=== PATIENT | male | born 1995 | race Caucasian/White ===

== ENCOUNTER 2025-09-03 15:28 | Outpatient (AMB) | payer OTHER, SELFPAY ==
--- NOTE | 2025-09-03 15:28 | A.OFFPC_ITS ---
Vital Signs 09/03/25 15:46 Height 5 ft 10.47 in Weight 194 lb BMI 27.5 BP 141/84 H Blood Pressure Location Rt brachial Position Sitting Respiration 14 Pulse 100 Pulse Source Pulse Oximeter Temp 97.8 F Temp Source Temporal Artery Scan Pulse Oximetry (%) 98 Oxygen Delivery Method Room Air Intake Visit Reasons: office visit -new visit Pe Teacher Required: No Accompanied by: Self / Same As Patient Allergies No Known Allergies Allergy (Verified 09/03/25 16:01) Medication List - Last Reconciled 09/03/25 by Anh Samuel PA-C lisinopril 10 mg PO DAILY Tobacco use date assessed: 09/03/25 Dental Screening Dental Screen Date: 09/03/25 Did you have a dental visit in the last 12 months?: No Did you have a dental problem in the last 6 months where you did not have access to dental care?: No Was dental information given to patient?: Patient has dentist HPI office visit -new visit HPI Details The patient is a 29-year-old male presenting for a new patient visit to establish care. He reports having a physical and blood work at the beginning of the year with his previous provider at [facility]. The patient is experiencing anxiety, which he attributes to work and the upcoming of his child. He has spoken with a counselor and is open to starting an SSRI. The patient has a history of hypertension and is prescribed lisinopril. His blood pressure was measured at 141 and later 145 systolic during the visit. He takes his medication at bedtime but sometimes forgets due to working variable shifts. He notes that with lisinopril, his blood pressure typically goes down to 125-128/70. He reports long-standing, sporadic GI issues, characterized by periods of increased diarrhea and bloating that last for about a week. He initially suspected lactose intolerance but has not been able to identify specific food triggers. Previous testing for Crohn's and celiac disease was negative. Past medical history includes elevated triglycerides that improved with fish oil, while his LDL was okay. He also had a history of transient proteinuria that resolved without needing a specialty consultation. His only surgery has been wisdom teeth removal. There is a family history of colon cancer in his maternal grandmother, who was diagnosed in her late 60s. 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 - Family: He is and his is with their first child, a boy. - Substance Use: He denies any history o f tobacco use but reports occasional use of marijuana. [facility] Medical History (Updated 09/03/25 @ 17:29 by Anh Samuel PA-C) Healthcare maintenance Abdominal discomfort Hypertriglyceridemia Hypertension Family history of colon cancer Anxiety Depression Surgical History Vaughn teeth removed Family History Father No problems noted. Mother No problems noted. Social History Housing: House Alcohol intake: current Alcohol intake frequency: holidays/special occasions only Patient Tobacco Use Status: Never used Tobacco service: No Current occupational status: employed Cognitive needs: No Hearing needs: No Vision needs: No Questionnaire PHQ-9 Over the last 2 weeks, how often have you been bothered by any of the following problems? 1. Little interest or pleasure in doing things: more than half the days 2. Feeling down, depressed, or hopeless: several days 3. Trouble falling or staying asleep, or sleeping too much: several days 4. Feeling tired or having little energy: more than half the days 5. Poor appetite or overeating: not at all 6. Feeling bad about yourself - or that you are a failure or have let yourself or your family down: several days 7. Trouble concentrating on things, such as reading the newspaper or watching television: several days 8. Moving or speaking so slowly that other people could have noticed. Or the opposite - being so fidgety or restless that you have been moving around a lot more than usual: several days 9. Thoughts that you would be better off or of hurting yourself in some way: not at all Total score: 9 Depression Screening Interpretation: Positive Depression Screening Follow-up: Existing condition, New Medication prescribed and Other (Referral placed) Depression Screening Done: Yes 78158 - PHQ-9 Billing: Yes Source: Developed by Drs. Kb Ross, Danielle WesleyEric and colleagues, with an educational adilene from [employer]. Thrive Questionnaire Date Thrive assessed: 09/03/25 I am a: Patient What is your living situation today?: I have a steady place to live Within the past 12 months, did the food you bought not last and you didn't have the money to get more?: Never true Within the past 12 months, did you worry whether your food would run out before you got money to buy more?: Never true Do you have trouble paying for medicines?: No Do you have trouble getting transportation to medical appointments?: No Do you have trouble paying your heating and electricity bill?: No Do you have trouble taking care of your child, family member or friend?: No Do you have trouble with day-to-day activities such as bathing, preparing meals, shopping, managing finances, etc.?: No Are you currently unemployed and looking for a job?: No Are you interested in more education?: No Please select the resources that you would like help with: None THRIVE Score: 0 AUDIT C Alcohol Use Questionnaire (AUDIT-C) 1. How often do you have a drink containing alcohol?: Monthly or less 2. How many drinks containing alcohol do you have on a typical day when you are drinking?: 1 or 2 3. How often do you have six or more drinks on one occasion?: Never Total Score: 1 Score Reviewed/Action Taken: No JOSE FRANCISCO-7 AMB Questionnaire JOSE FRANCISCO-7 Date JOSE FRANCISCO - 7 assessed: 09/03/25 Feeling nervous, anxious, or on edge: 1 = Several days Not being able to stop or control worryin = Several days Worrying too much about different things: 1 = Several days Trouble relaxin = More than half the days Being so restless that it is hard to sit still: 1 = Several days Becoming easily annoyed or irritable: 1 = Several days Feeling afraid as if something awful might happen: 0 = Not at all Total JOSE FRANCISCO-7 score (0-4 normal; 5-9 mild; 10-14 moderate; 15-21 severe): 7 Source: Developed by Drs. Kb Ross, Danielle Wesley, Eric Pena and colleagues, with an educational adilene from [employer]. JOSE FRANCISCO-7 Assessment Billing JOSE FRANCISCO-7 Assessment Tool: JOSE FRANCISCO-7 Assessment 17685 Review of Systems Const Details: - Constitutional: Denies unintentional weight loss. - Gastrointestinal: Reports intermittent diarrhea and bloating, along with general lower abdominal sensitivity. - Denies black or bloody stools. - Genitourinary: Reports a past history of mild proteinuria, which has since resolved. - Psychiatric: Reports feeling of anxiety. - Eyes: Denies any problems with vision. - Ears: Denies any problems with hearing. All systems reviewed & are unremarkable except as noted in HPI and below Physical exam (Primary Care) Vital Signs: Last Vital Signs Temp 97.8 F 09/03/25 15:46 Pulse 100 09/03/25 15:46 Resp 14 09/03/25 15:46 BP 141/84 H 09/03/25 15:46 Pulse Ox 98 09/03/25 15:46 Oxygen Delivery Method Room Air 09/03/25 15:46 Care Plan Goal for BP management: <140/90 will increase lisinopril from 10 mg to 10 mg b.i.d. BMI result Body Mass Index 27.5 BMI Assessment/Plan discussion: High BMI High, discussed plan: lifestyle, weight reduction, dietary, physical activity, alcohol moderation and other Tobacco/Smoking Status: Tobacco use Status Tobacco use date assessed 09/03/25 09/03/25 15:30 Patient Tobacco Use Status Never used Tobacco 09/03/25 15:50 PHQ-9: PHQ-9 Score PHQ-9: Total score 9 09/03/25 16:02 Depression Screening Interpretation: Positive Depression Screening Follow-up: Existing condition, New Medication prescribed and Other (Referral placed) Thrive Assessment: Date of Thrive Assessment Date Thrive assessed 09/03/25 09/03/25 15:30 Const Other: Appearance: Alert. Oriented X3. No acute distress. Head: Normal external exam. Normocephalic. Atraumatic. Eyes: Pupils are equal, round, and reactive to light. Extraocular movements intact. Conjunctiva and sclera normal. Eyelids normal. Ears: External auditory canal normal. Tympanic membranes normal. Just a little bit of wax noted in one ear. Recommend stopping Q-tip use and using peroxide. Throat: Pharynx normal. Uvula midline. Moist mucous membranes. Neck: Normal inspection. Neck supple. Full range of motion. No adenopathy. Thyroid Normal. No meningeal signs. No neck mass noted. Cardiovascular: Blood pressure recorded at 141/84 and 145/85. Normal heart rate and rhythm. Heart sound normal. No murmurs noted. Pulses normal throughout. Respiratory: No respiratory distress. Painless inspiration. Breath sounds normal. No wheezes/rales/rhonchi noted. Chest nontender. No accessory muscle usage noted or decreased air movement noted. Abdomen: Soft and nontender. Bowel sounds normal in all 4 quadrants. No distention noted. No organomegaly noted. No visible injury noted. Back: No costovertebral angle tenderness. Full range of motion noted. Skin: Skin warm and dry. Normal skin color. Normal skin turgor. No rashes/lesions/lacerations noted. Extremities: No lower extremity edema. Extremities exhibit normal range of motion. Extremities nontender. Neuro: Oriented X 3. No motor deficit. No sensory deficit. Reflexes normal. Results Reviewed Results Reviewed: - Lab History: Previous labs showed slightly high triglycerides which improved with fish oil, and a history of resolved proteinuria. - Prior Testing: Previous tests for Crohn's and celiac disease were negative. Coding Level of Care Code New Pt Level 4 (88007) Complex EM visit Add On G2211 Diagnoses Anxiety F41.9 Depression F32.A Hypertension I10 Abdominal discomfort R10.9 Healthcare maintenance Z00.00 Additional Codes JOSE FRANCISCO-7 Assessment Billing - JOSE FRANCISCO-7 Assessment Tool: JOSE FRANCISCO-7 Assessment 93116 ([id number]) PHQ-9 - 45409 - PHQ-9 Billing: Yes ([id number]) Time Spent (min) 60 Assessment & Plan Assessment & Plan (1) Anxiety: Code(s): F41.9 - Anxiety disorder, unspecified Category: Medical Plan: He scores positive for anxiety, likely related to work and his impending fatherhood. He is open to trying an SSRI after discussion with a counselor. Will start sertraline 25 mg daily. A 90-day prescription with three refills will be sent to his pharmacy. Potential side effects, including erectile dysfunction, initial increase in depression, and weight gain, were discussed. A referral will be placed for a psychiatry consultation. A follow-up is scheduled in one month to assess his response to the medication. (2) Depression: Code(s): F32.A - Depression, unspecified Category: Medical Plan: He scores positive for anxiety, likely related to work and his impending fatherhood. He is open to trying an SSRI after discussion with a counselor. Will start sertraline 25 mg daily. A 90-day prescription with three refills will be sent to his pharmacy. Potential side effects, including erectile dysfunction, initial increase in depression, and weight gain, were discussed. A referral will be placed for a psychiatry consultation. A follow-up is scheduled in one month to assess his response to the medication. (3) Hypertension: Code(s): I10 - Essential (primary) hypertension Category: Medical Plan: The patient's blood pressure remains elevated, with readings of 141/84 mmHg and 145/85 mmHg, despite being on lisinopril. His adherence is sometimes affected by his variable work schedule. The plan is to adjust his lisinopril dose to twice daily to improve control. The prescription will be updated, and the patient has an adequate supply to begin the new regimen. Blood pressure will be rechecked at the one-month follow-up. (4) Abdominal discomfort: Code(s): R10.9 - Unspecified abdominal pain Category: Medical Plan: The patient presents with long-standing, sporadic GI issues, including bloating and diarrhea. Although prior testing for Crohn's and celiac disease was negative, a workup is indicated. A GI referral will be placed to evaluate his symptoms and for colon cancer screening given his family history. A CT scan of the abdomen and pelvis with IV and PO contrast will be ordered to rule out other pathology. The patient was instructed to wait for the CAT scan to be scheduled before getting the required blood work for kidney function, as it must be done within 30 days of the scan. Additional fasting blood work, including tests for celiac disease, was also ordered. (5) Healthcare maintenance: Code(s): Z00.00 - Encounter for general adult medical examination without abnormal findings Category: Medical Plan: Lab work for an annual physical will be ordered, including a CBC, CMP, ESR, lipid panel, liver panel, magnesium, HbA1c, PSA, TSH with reflex T4, vitamin B12, and vitamin D. A urinalysis will also be performed. The patient was in structed to complete this fasting blood work before his next physical exam, which can be scheduled for the beginning of the year. For cerumen management, he was advised to use peroxide in his ear instead of Q-tips. Plan Plan Patient was informed and verbally consented to the use of an ambient scribe for clinic note documentation during this visit. 1. Anxiety He scores positive for anxiety, likely related to work and his impending fatherhood. He is open to trying an SSRI after discussion with a counselor. Will start sertraline 25 mg daily. A 90-day prescription with three refills will be sent to his pharmacy. Potential side effects, including erectile dysfunction, initial increase in depression, and weight gain, were discussed. A referral will be placed for a psychiatry consultation. A follow-up is scheduled in one month to assess his response to the medication. 2. Hypertension The patient's blood pressure remains elevated, with readings of 141/84 mmHg and 145/85 mmHg, despite being on lisinopril. His adherence is sometimes affected by his variable work schedule. The plan is to adjust his lisinopril dose to twice daily to improve control. The prescription will be updated, and the patient has an adequate supply to begin the new regimen. Blood pressure will be rechecked at the one-month follow-up. 3. Gastrointestinal Symptoms The patient presents with long-standing, sporadic GI issues, including bloating and diarrhea. Although prior testing for Crohn's and celiac disease was negative, a workup is indicated. A GI referral will be placed to evaluate his symptoms and for colon cancer screening given his family history. A CT scan of the abdomen and pelvis with IV and PO contrast will be ordered to rule out other pathology. The patient was instructed to wait for the CAT scan to be scheduled before getting the required blood work for kidney function, as it must be done within 30 days of the scan. Additional fasting blood work, including tests for celiac disease, was also ordered. 4. Health Maintenance Lab work for an annual physical will be ordered, including a CBC, CMP, ESR, lipid panel, liver panel, magnesium, HbA1c, PSA, TSH with reflex T4, vitamin B12, and vitamin D. A urinalysis will also be performed. The patient was instructed to complete this fasting blood work before his next physical exam, which can be scheduled for the beginning of the year. For cerumen management, he was advised to use peroxide in his ear instead of Q-tips. I discussed the plan to address his anxiety by starting sertraline 25 mg daily. I reviewed the potential side effects, including erectile dysfunction, a possible initial increase in depression, and weight gain. I placed a referral for a psychiatry consultation for further management. We talked about his persistently elevated blood pressure readings and agreed to adjust his lisinopril dosing to twice daily to improve control. I also explained the plan for his gastrointestinal symptoms, which includes a referral to GI, a CT scan of the abdomen and pelvis, and comprehensive blood work including a celiac panel. I specifically instructed him to wait until the CT scan is scheduled before getting the prerequisite blood work done. I ordered a full panel of labs for his annual physical and advised him to go for the blood draw while fasting. I provided guidance on managing ear wax with peroxide instead of Q-tips. We scheduled a follow-up appointment in one month to check his blood pressure and assess his response to sertraline. Orders: Orders C Reactive Protein Today Z00.00 - Encounter for general adult medical examination without abnormal findings Erythrocyte Sedimentation Rate Today Z00.00 - Encounter for general adult medical examination without abnormal findings Lipid Panel Today Z00.00 - Encounter for general adult medical examination without abnormal findings Liver Panel Today Z00.00 - Encounter for general adult medical examination without abnormal findings Magnesium Today Z00.00 - Encounter for general adult medical examination without abnormal findings TSH reflex Free T4 Today Z00.00 - Encounter for general adult medical examination without abnormal findings UA CC w/rflx Micro + Cult Today Z00.00 - Encounter for general adult medical examination without abnormal findings Vitamin B12 and Folate Today Z00.00 - Encounter for general adult medical examination without abnormal findings Vitamin D 25-OH Total Today Z00.00 - Encounter for general adult medical examination without abnormal findings Transglutaminase IgA 1 Day R14.0 - Abdominal distension (gaseous) Celiac Diagnostic Gliadin TTG Today R10.9 - Unspecified abdominal pain CT abdomen pelvis w IV con Today R10.9 - Unspecified abdominal pain, Z80.0 - Family history of malignant neoplasm of digestive organs Complete Blood Count Auto Diff Today Z00.00 - Encounter for general adult medical examination without abnormal findings Comprehensive [place]. Panel Fast Today Z00.00 - Encounter for general adult medical examination without abnormal findings Hemoglobin A1c Today Z00.00 - Encounter for general adult medical examination without abnormal findings PSA,Total (Free>4and<10) Today Z00.00 - Encounter for general adult medical examination without abnormal findings Transglutaminase Ab IgG 1 Day R14.0 - Abdominal distension (gaseous) Referrals Psychiatry Outpatient Consultation Service F32.A - Depression, unspecified, F41.9 - Anxiety disorder, unspecified Psychiatry Referral F32.A - Depression, unspecified, F41.9 - Anxiety disorder, unspecified Gastroenterology Referral R10.9 - Unspecified abdominal pain, Z12.11 - Encounter for screening for malignant neoplasm of colon, Z80.0 - Family history of malignant neoplasm of digestive organs Medications: New sertraline 25 mg PO DAILY 90 tabs 3RF lisinopril 10 mg PO BID 180 tabs 3RF 90 days Patient Instructions: - You will start taking sertraline 25 mg once a day for anxiety. - Be aware of potential side effects such as sexual dysfunction, mood changes, or weight gain and report them if they occur. - Begin taking your lisinopril blood pressure medication twice a day as we discussed. - You have enough of your current prescription to start this new schedule. - Please schedule a follow-up appointment in one month to check your blood pressure and see how you are doing on the new medication. - I have ordered lab work for you. - You will need to fast (nothing to eat or drink except water or black coffee) for 10-12 hours before the blood draw. - I have also ordered a CAT scan of your abdomen. - Wait for the hospital to call you to schedule it. - Once it is scheduled, you must get blood work done within the 30 days leading up to your scan appointment. - We are referring you to a regulatory compliance officer (a stomach specialist) for your digestive issues and for a colon cancer screening. - Their office will contact you to set up an appointment. - We are referring you to our psychiatry department to help manage your anxiety. - To clean your ears, use a capful of hydrogen peroxide; do not use Q-tips, as they can push wax further in.
[2025-09-03 15:46] VITALS: BP 141/84; PULSE 100; RESP 14; TEMP 36.6; O2SAT 98; BMI 27.5
--- OUTSIDE RECORDS SUMMARY | 2025-09-03 18:00 | XMS_ITS | Clinical Summary ---
Author Organization [employer] Address [address] [facility] [address] [place] [address] Care Team Providers Care Decorating Equipment Setter Name Role Phone Unavailable Primary Care Provider Unavailabl e Allergies Active Allergy Reactions Criticality Noted Date Comments Gramineae Pollens Itching Low 01/27/2025 Watery eyes Medications * This document contains information received from the source organization and may not represent a complete record from that organization. dicyclomine (Bentyl) 10 MG capsule Take 10 mg by mouth in the morning and 10 mg at noon and 10 mg in the evening. 4 Active lisinopril 10 MG tabletIndications :Essential hypertension Take 1 tablet (10 mg) by mouth Once per day. 90 tablet 1 5 Active Active Problems Problem Noted Date Diagnosed Date Adjustment disorder with mixed anxiety and depre ssed mood 06/04/2025 Hypertriglyceridemia 11/27/2023 Irritable bowel syndrome with diarrhea 3 Essential hypertension 10/03/2023 Immunizations Immunization Administration Dates Next Due DTP 06/19/1996,04/10/1996,02/06/1996 DTaP 03/07/2000,03/16/1997 HPV, Quadrivalent 10/24/2012,07/02/2012 Hep A, Adult 04/27/2025 Hep B, Unspecified 06/19/1996,02/06/1996, 996 Hib (HbOC) 03/16/1997, 6,04/10/1996,02/05 IPV 03/07/2000 MMR 03/07/2000,03/16/1997 Meningococcal MCV4, Unspecified 12/23/2008 Moderna Covid-19 Vaccine 12+ 01/27/2025 Novel [id number], preservative-free 10/11/2009 OPV, Trivalent 06/19/1996,04/10/1996,02/06/1996 Td (adult), 5 Lf tetanus tox oid, preservative free, adsorbed 02/13/2007 Tdap 01/27/2025,01/04/2010 Varicella 12/23/2008,02/13/2007 Family History Relation Name Status Comments Father Alive Mother Alive Social History Tobacco Use Types Packs/Day Years Used Date Smoking Tobacco: Never Passive Smoke Exposure: Never Smokeless Tobacco: Never Tobacco Cessation:Counseling Given: No Alcohol Use Standard Drinks/Week Comments Yes 0 (1 standard drink = 0.6 oz pur e alcohol) Socially Alcohol Answer Date Recorded How often do you have a drink containing alcohol ? 0 01/27/2025 How many drinks containing a lcohol do you have on a typical day when you are drinking? 0 01/27/2025 How often do you have six or more drinks on one occasion? 0 01/27/2025 Depression Answer Date Recorded Patient Health Questionnaire-9 Score 8 04/15/2025 Patient Health Questionnaire-9 Score 8 04/15/2025 Last PHQ-9: Questionnaire Data Not on file 0 04/15/2025 Housing Stability Answer Date Recorded What is your housing situation today? I have tawanna loera 01/27/[address] you li ve. Do you have problems with any of the following? None of the above 01/27/2025 Food Insecurity Answer Date Recorded Within the past 12 months, y ou worried that your food would run out before you got money to buy more: Never True 01/27/2025 Within the past 12 months,th e food you bought just didn't last and you didn't have enough money to get more: Never True Transportation Answer Date Recorded In the past 12 months, has l ack of transportation kept you from medical appts, meetings, work or from getting things needed for daily living? No 01/27/2025 Intimate Partner Violence Answer Date R ecorded Within the last year, have y ou been afraid of your partner or ex-partner? 2 01/27/2025 Within the last year, have y ou been humiliated or emotionally abused in other ways by your partner or ex-partner? 2 Within the last year, have y ou been kicked, hit, slapped, or otherwise physically hurt by your partner or ex-partner? 2 01/27/2025 Within the last year, have y ou been raped or forced to have any kind of sexual activity by your partner or ex-partner? 2 01/27/2025 Utilities Answer Date Recorded In the past 12 months, has t he electric, gas, oil or water company threatened to shut off services in your home? No 01/27/2025 Depression Answer Date Recorded Patient Health Questionnaire-2 Score 2 04/15/2025 Internet Access Answer Date Recorded Internet Access Q1 Yes 01/27/2025 Internet Access Q2 Not on file 01/27/2025 Education Answer Date Recorded What is the highest level of school you have completed or the highest degree you have received? Professional school degree (e.g., MD, DDS, DVM, MAINE) 01/27/2025 Sex and Gender Information Value Date Recorded Sex Assigned at Male 10/14/2024 11:54 AM EST Legal Sex Male 11:38 AM EST Gender Identity Male 10/14/2024 11:54 AM EST Sexual Orientation Straight 10/14/2024 11 :54 AM EST Occupation Industry Job Start Date Job End Date Not on file Not on file Not on file Not on file Last Filed Vital Signs Vital Sign Reading Time Taken Comments Blood Pressure 128/72 04/27/2025 2:55 PM EDT Pulse 88 04/27/2025 2:55 PM EDT Temperature 37.1 C (98.7 F) 04/27/2025 2:55 PM EDT Respiratory Rate 16 04/27/2025 2:55 PM EDT Oxygen Saturation 97% 04/27/2025 2:55 PM EDT Inhaled Oxygen Concentration - - Weight 88.5 kg (195 lb) 04/27/2025 2:55 PM EDT Height 177.8 cm (5' 10 ) 04/27/2025 2:55 PM EDT Body Mass Index 27.98 04/27/2025 2:55 PM EDT Plan of Treatment Upcoming Encounters Date Type Department Care Team (Late st Contact Info) Description 10/26/2025 3:00 PM EST Office Visit Benjam[facility] [address] [place] [address] Reno De La Garza, JAYY [address] [place] [address] Health Maintenance Due Date Last Done Comments HIV Screening 1995 Lipid Panel 1995 HPV Vaccines (3 - Male 3-dose series) 01/16/2013 10/24/2012, 07/02/2012 Hepatitis C Screening 2013 Influenza Vaccine (#1) 2025 10/11/2009 Alcohol/Substance Use Screening 01/27/2026 01/27/2025 Family Planning (PISQ) 01/27/2026 01/27/2025 SDOH Screening 01/27/2026 01/27/2025 Tobacco Screening 01/27/2026 01/27/2025 Depression Screening 04/15/2026 04/15/2025, 04/15/20 Disability Screening 04/27/2026 04/27/2025 DTaP/Tdap/Td Vaccines (8 - Td or Tdap) 01/27/2035 01/27/2025, 01/04/2010, 02/13/2007, Additional history exists Zoster Vaccines (1 of 2) 2045 RSV Patients and Patients Aged 60 years or older (1 - 1-dose 75+ series) 2070 Hepatitis B Vaccines Completed 06/19/1996, 02/06/1996, 1995 HIB Vaccines Completed 03/16/1997, 06/05, 04/10/1996, Additional history exists IPV Vaccines Completed 03/07/2000, 06/05, 04/10/1996, Additional history exists Meningococcal Vaccine Aged Out 12/23/2008 No vini ivon eligible based on patient's age to complete this topic COVID-19 Vaccine Completed 01/27/2025, 10/24/2021 Hepatitis A Vaccines Aged Out 04/27/2025 No long er eligible based on patient's age to complete this topic Meningococcal B Vaccine Aged Out No l onger eligible based on patient's age to complete this topic Pneumococcal Vaccine: Pediatrics (0 to 5 Years) and At-Risk Patients (6 to 49) Years Aged Out No longer eligible based on patient's age to complete this topic RSV under 20 months Aged Out No longe r eligible based on patient's age to complete this topic Rotavirus Vaccines Aged Out No longer eligible based on patient's age to complete this topic [place] [address] [place] [address] [employer]
== END 2025-09-03 17:39 | disposition home or self-care (01) ==
LOC: HO.HMCSH 15:29
PROVIDERS: PCP Physician Assistant Medical; Visit Provider Physician Assistant Medical
DX: F41.9 Anxiety disorder, unspecified (principal); F32.A Depression, unspecified; I10 Essential (primary) hypertension; R10.9 Unspecified abdominal pain; Z00.00 Encounter for general adult medical examination without abnormal findings

== ENCOUNTER → 2025-09-03 15:28 | Outpatient (BNVA) | payer OTHER, SELFPAY | PROVIDERS: PCP Physician Assistant Medical; Visit Provider Physician Assistant Medical | DX: Z00.00 Encounter for general adult medical examination without abnormal findings (principal); F41.9 Anxiety disorder, unspecified; I10 Essential (primary) hypertension; E78.1 Pure hyperglyceridemia; F32.A Depression, unspecified; R10.9 Unspecified abdominal pain; Z79.899 Other long term (current) drug therapy | CPT/HCPCS: 96127 ==

== ENCOUNTER 2025-09-25 14:34 | Outpatient (AMB) | payer OTHER, SELFPAY ==
[2025-09-25 14:43] VITALS: BP 139/65; PULSE 94; RESP 14; TEMP 36.8; O2SAT 98; BMI 26.9
--- NOTE | 2025-09-25 14:43 | MHC.PC.OV ---
Vital Signs 09/25/25 14:43 Height 5 ft 10.47 in Weight 190 lb BMI 26.9 BP 139/65 Blood Pressure Location Lt brachial Position Sitting Respiration 14 Pulse 94 Pulse Source Pulse Oximeter Temp 98.2 F Temp Source Temporal Artery Scan Pulse Oximetry (%) 98 Oxygen Delivery Method Room Air Intake Visit Reasons: 1 month f/u Certified Wellness Program Coordinator Required: No Accompanied by: Self / Same As Patient Allergies No Known Allergies Allergy (Verified 09/25/25 15:15) Medication List - Last Reconciled 09/25/25 by Anh Samuel PA-C lisinopril 10 mg PO BID 90 days sertraline 25 mg PO DAILY Tobacco use date assessed: 09/03/25 Dental Screening Dental Screen Date: 09/03/25 HPI HPI Comments History of Present Illness Details History of Present Illness The patient is a 29 year old individual presenting for a follow-up for hypertension and anxiety. The patient is being treated for anxiety with sertraline and reports feeling fine without any other symptoms. The patient denies any thoughts of self-harm. The patient has not engaged in counseling but acknowledges possibly missing calls from the service. For hypertension, the patient is taking lisinopril 10 mg twice a day and reports tolerating it well without noticeable side effects. The patient notes that the medication seems to be effective, as the diastolic blood pressure is typically higher. The patient has an adequate supply of medications and does not currently require refills. The patient has a pending CT scan to be scheduled and will have blood work done a week prior to the procedure. A new, non-itchy dry skin lesion has been present for a couple of days, which the patient initially thought was a scratch from a new kitten. The patient has no history of eczema. Social History - Family: The patient is expecting a son, the first child, due on November 18. [facility] Medical History (Updated 09/25/25 @ 15:34 by Anh Samuel PA-C) Fungal skin infection Healthcare maintenance Abdominal discomfort Hypertriglyceridemia Hypertension Family history of colon cancer Anxiety Depression Surgical History Woody teeth removed Family History Father No problems noted. Mother No problems noted. Social History Housing: House Alcohol intake: current Alcohol intake frequency: holidays/special occasions only Patient Tobacco Use Status: Never used Tobacco service: No Current occupational status: employed Cognitive needs: No Hearing needs: No Vision needs: No Questionnaire PHQ-9 Over the last 2 weeks, how often have you been bothered by any of the following problems? 1. Little interest or pleasure in doing things: more than half the days 2. Feeling down, depressed, or hopeless: several days 3. Trouble falling or staying asleep, or sleeping too much: several days 4. Feeling tired or having little energy: more than half the days 5. Poor appetite or overeating: not at all 6. Feeling bad about yourself - or that you are a failure or have let yourself or your family down: several days 7. Trouble concentrating on things, such as reading the newspaper or watching television: several days 8. Moving or speaking so slowly that other people could have noticed. Or the opposite - being so fidgety or restless that you have been moving around a lot more than usual: several days 9. Thoughts that you would be better off or of hurting yourself in some way: not at all Total score: 9 Depression Screening Interpretation: Positive Depression Screening Follow-up: Existing condition, New Medication prescribed and Other (Referral placed) Depression Screening Done: Yes 02166 - PHQ-9 Billing: Yes Source: Developed by Drs. Kb Ross, Danielle Wesley, Eric Pena and colleagues, with an educational adilene from [employer]. Thrive Questionnaire Date Thrive assessed: 09/03/25 I am a: Patient What is your living situation today?: I have a steady place to live Within the past 12 months, did the food you bought not last and you didn't have the money to get more?: Never true Within the past 12 months, did you worry whether your food would run out before you got money to buy more?: Never true Do you have trouble paying for medicines?: No Do you have trouble getting transportation to medical appointments?: No Do you have trouble paying your heating and electricity bill?: No Do you have trouble taking care of your child, family member or friend?: No Do you have trouble with day-to-day activities such as bathing, preparing meals, shopping, managing finances, etc.?: No Are you currently unemployed and looking for a job?: No Are you interested in more education?: No Please select the resources that you would like help with: None THRIVE Score: 0 AUDIT C Alcohol Use Questionnaire (AUDIT-C) 1. How often do you have a drink containing alcohol?: Monthly or less 2. How many drinks containing alcohol do you have on a typical day when you are drinking?: 1 or 2 3. How often do you have six or more drinks on one occasion?: Never Total Score: 1 Score Reviewed/Action Taken: No JOSE FRANCISCO-7 AMB Questionnaire JOSE FRANCISCO-7 Date JOSE FRANCISCO - 7 assessed: 09/03/25 Feeling nervous, anxious, or on edge: 1 = Several days Not being able to stop or control worryin = Several days Worrying too much about different things: 1 = Several days Trouble relaxin = More than half the days Being so restless that it is hard to sit still: 1 = Several days Becoming easily annoyed or irritable: 1 = Several days Feeling afraid as if something awful might happen: 0 = Not at all Total JOSE FRANCISCO-7 score (0-4 normal; 5-9 mild; 10-14 moderate; 15-21 severe): 7 Source: Developed by Drs. Kb Ross, Danielle Wesley, Eric Pena and colleagues, with an educational adilene from [employer]. JOSE FRANCISCO-7 Assessment Billing JOSE FRANCISCO-7 Assessment Tool: JOSE FRANCISCO-7 Assessment 85718 Review of Systems Narrative Review of Systems - Psychiatric: Reports stable anxiety and increased sleep. Denies thoughts of self-harm. - Integumentary: Reports a new dry, non-itchy skin lesion. Denies a history of eczema. - All other systems were reviewed and are negative. Const All systems reviewed & are unremarkable except as noted in HPI and below Physical exam (Primary Care) Vital Signs: Last Vital Signs Temp 98.2 F 09/25/25 14:43 Pulse 94 09/25/25 14:43 Resp 14 09/25/25 14:43 BP 139/65 09/25/25 14:43 Pulse Ox 98 09/25/25 14:43 Oxygen Delivery Method Room Air 09/25/25 14:43 Care Plan Goal for BP management: <140/90 at Goal BMI result Body Mass Index 26.9 BMI Assessment/Plan discussion: High BMI High, discussed plan: lifestyle, weight reduction, dietary, physical activity, alcohol moderation and other Tobacco/Smoking Status: Tobacco use Status Tobacco use date assessed 09/03/25 09/25/25 14:45 Patient Tobacco Use Status Never used Tobacco 09/25/25 14:45 PHQ-9: PHQ-9 Score PHQ-9: Total score 9 09/25/25 15:09 Depression Screening Interpretation: Positive Depression Screening Follow-up: Existing condition, New Medication prescribed and Other (Referral placed) Thrive Assessment: Date of Thrive Assessment Date Thrive assessed 09/03/25 09/25/25 14:45 Narrative Physical Exam Appearance: Alert. Oriented X3. No acute distress. Head: Normal external exam. Normocephalic. Atraumatic. Eyes: Pupils are equal, round, and reactive to light. Extraocular movements intact. Conjunctiva and sclera normal. Eyelids normal. Throat: Pharynx normal. Uvula midline. Moist mucous membranes. Neck: Normal inspection. Neck supple. Full range of motion. Cardiovascular: Normal heart rate and rhythm. Heart sound normal. No murmurs noted. Pulses normal throughout. Blood pressure 125/68. Respiratory: No respiratory distress. Painless inspiration. Breath sounds normal. No wheezes/rales/rhonchi noted. Chest nontender. No accessory muscle usage noted or decreased air movement noted. Back:Full range of motion noted. Skin: Skin warm and dry. Normal skin color. Normal skin turgor. No rashes/lesions/lacerations noted. Dry skin noted, possibly due to new kitten scratches. Fungal cream prescribed. Extremities: Extremities exhibit normal range of motion. Neuro: Oriented X 3. No motor deficit. No sensory deficit. Reflexes normal. Office Procedures Flu Questionnaire Does the patient have a severe egg allergy?: No Does the patient have severe life threatening allergies?: No Does the patient have a fever or illness today?: No Has the patient ever had Guillain-[place] Syndrome?: No Has the patient ever had any past reaction to a flu shot?: No Immunizations Fluarix [id number] (PF) 45 mcg (15 mcg x 3)/0.5 mL IM syringe Performing Provider: Anh Samuel PA-C [place] [facility] Documented (not given) by: MUSA Hicks on 09/25/25 15:09 Reason Not Given: Received Previously Coding Level of Care Code Est Pt Level 4 (30478) Complex visit Add On G2211 Diagnoses Hypertension I10 Depression F32.A Anxiety F41.9 Fungal skin infection B36.9 Additional Codes JOSE FRANCISCO-7 Assessment Billing - JOSE FRANCISCO-7 Assessment Tool: JOSE FRANCISCO-7 Assessment 20098 ([id number]) PHQ-9 - 99527 - PHQ-9 Billing: Yes ([id number]) Time Spent (min) 60 Assessment & Plan Assessment & Plan (1) Hypertension: Code(s): I10 - Essential (primary) hypertension Category: Medical Plan: The patient will continue lisinopril 10 mg twice daily for blood pressure management. The medication is well-tolerated and appears effective, with a current blood pressure of 125/68 mmHg. No refills are needed at this time. (2) Depression: Code(s): F32.A - Depression, unspecified Category: Medical Plan: The patient will continue taking sertraline as prescribed, which is reported to be well-tolerated without side effects. The patient was offered the opportunity to speak with the on-site social work lecturer to facilitate setting up counseling services. A previously placed psychiatry referral remains in effect. (3) Anxiety: Code(s): F41.9 - Anxiety disorder, unspecified Category: Medical Plan: The patient will continue taking sertraline as prescribed, which is reported to be well-tolerated without side effects. The patient was offered the opportunity to speak with the on-site social work lecturer to facilitate setting up counseling services. A previously placed psychiatry referral remains in effect. (4) Fungal skin infection: Code(s): B36.9 - Superficial mycosis, unspecified Category: Medical Plan: A new dry skin lesion is present, with a differential diagnosis including a fungal infection or eczema. A trial of topical antifungal cream was prescribed to be sent to the [facility] pharmacy. The patient was advised to report if the condition does not improve. Plan Plan Patient was informed and verbally consented to the use of an ambient scribe for clinic note documentation during this visit. 1. Hypertension The patient will continue lisinopril 10 mg twice daily for blood pressure management. The medication is well-tolerated and appears effective, with a current blood pressure of 125/68 mmHg. No refills are needed at this time. 2. Anxiety The patient will continue taking sertraline as prescribed, which is reported to be well-tolerated without side effects. The patient was offered the opportunity to speak with the on-site social work lecturer to facilitate setting up counseling services. A previously placed psychiatry referral remains in effect. 3. Fungal Skin Infection A new dry skin lesion is present, with a differential diagnosis including a fungal infection or eczema. A trial of topical antifungal cream was prescribed to be sent to the [facility] pharmacy. The patient was advised to report if the condition does not improve. 4. Follow-Up The patient will schedule a follow-up appointment in three months. The patient was advised to schedule a pending CT scan and complete blood work one week prior. Discussion Notes I discussed the patient's ongoing management of hypertension and anxiety. We agreed to continue lisinopril and sertraline, as they are effective and well-tolerated. I arranged for the patient to meet with our social work lecturer, Parris, during this visit to help establish counseling services. We addressed a new skin lesion, for which I prescribed a topical antifungal cream, suspecting a fungal cause over eczema initially. I counselled the patient to schedule the pending CT scan and complete the associated bloodwork. A follow-up in three months was recommended. Orders: Orders Influenza [id number] Immunization Today Z23 - Encounter for immunization Medications: New clotrimazole 1% 1 appl topical BID 15 grams 3RF Patient Instructions: Patient Instructions - Continue taking lisinopril 10 mg twice a day for your blood pressure. - Continue taking your sertraline medication for anxiety as prescribed. - Apply the new cream to the dry skin patch as directed. Let us know if it does not get better. - Please wait to speak with the social work lecturer, Parris, today to get help with setting up counseling. - Call to schedule your CT scan. - Please get your blood work done one week before your CT scan. You were given a paper with the lab locations and do not need an appointment. - Schedule a follow-up appointment in about three months.
--- OUTSIDE RECORDS SUMMARY | 2025-09-25 14:52 | XMS_ITS | Clinical Summary ---
Author Organization [employer] Address [address] [facility] [address] [place] [address] Care Team Providers Care Insurance Checker Name Role Phone Unavailable Primary Care Provider [...] 12/23/2008 Moderna Covid-19 Vaccine 12+ 01/27/2025 Novel [id number], preservative-free 10/11/2009 OPV, Trivalent 06/19/1996,04/10/1996,02/06/1996 Td (adult), [...] 10/26/2025 3:00 PM EST Office Visit Benjamín [facility] [address] [place] [address] Reno De La Garza, JAYY [address] [place] [address] Health Maintenance Due Date Last Done Comments HIV Screening 1995 Lipid Panel 1995 HPV Vaccines (3 - Male 3-dose series) 01/16/2013 10/24/2012, 07/02/2012 Hepatitis C Screening 2013 COVID-19 Vaccine (3 - season) 2025 01/27/2025, 10/24/2021 Influenza Vaccine (#1) 2025 10/11/2009 Alcohol/Substance Use [...] on patient's age to complete this topic Hepatitis A Vaccines Aged Out 04/27/2025 No [...] patient's age to complete this topic Insurance [place] [employer]
== END 2025-09-25 15:51 | disposition home or self-care (01) ==
PROVIDERS: PCP Physician Assistant Medical; Visit Provider Physician Assistant Medical
DX: I10 Essential (primary) hypertension (principal); F32.A Depression, unspecified; F41.9 Anxiety disorder, unspecified; B36.9 Superficial mycosis, unspecified; Z23 Encounter for immunization

== ENCOUNTER → 2025-09-25 14:34 | Outpatient (BNVA) | payer OTHER, SELFPAY | PROVIDERS: PCP Physician Assistant Medical; Visit Provider Physician Assistant Medical | DX: Z28.89 Immunization not carried out for other reason (principal); I10 Essential (primary) hypertension; F32.A Depression, unspecified; F41.9 Anxiety disorder, unspecified; B36.9 Superficial mycosis, unspecified | CPT/HCPCS: 90471; 96127 ==

== ENCOUNTER 2025-10-16 12:19 | Outpatient (AMB) | payer OTHER, SELFPAY ==
[2025-10-16 12:33] VITALS: BP 124/90; PULSE 108; TEMP 36.8; O2SAT 98; BMI 27.3
--- NOTE | 2025-10-16 12:33 | MHC.OFFWIV ---
Intake Vital Signs 10/16/25 12:33 Height 5 ft 10 in Weight 190 lb BMI 27.3 BP 124/90 H Blood Pressure Location Lt brachial Position Sitting Pulse 108 H Pulse Source Pulse Oximeter Temp 98.3 F Temp Source Oral Pulse Oximetry (%) 98 Oxygen Delivery Method Room Air Intake Visit Reasons: EP sore throat congestion dry cough Intake Note: Patient presents c/o sinus congestion, post nasal drip, loss of voice, cough x4 days. Patient Tobacco Use Status: Never used Tobacco Allergies No Known Allergies Allergy (Verified 10/16/25 12:36) HPI HPI Comments History of Present Illness Details This is a 29-year-old male who works for the pharmacy at [employer] with a past medical history of hypertension and anxiety presenting for evaluation of sinus congestion, cough and sore throat that he has had since Sunday. Patient denies having any fevers, chills, ear pain cough, shortness for breath and has been taking Sudafed only for relief of his symptoms. [facility] Medical History (Updated 10/16/25 @ 12:56 by Katlin Jiménez PA-C) Fungal skin infection Healthcare maintenance Abdominal discomfort Hypertriglyceridemia Hypertension Family history of colon cancer Anxiety Depression Surgical History [place] teeth removed Family History Father No problems noted. Mother No problems noted. Social History Housing: House Alcohol intake: current Alcohol intake frequency: holidays/special occasions only Patient Tobacco Use Status: Never used Tobacco service: No Current occupational status: employed Cognitive needs: No Hearing needs: No Vision needs: No Review of Systems Const All systems reviewed & are unremarkable except as noted in HPI and below Denies body aches, Denies chills, Denies fatigue and Denies fever(s) Eyes Reports no additional complaints ENT Denies dysphagia, Denies dizziness, Denies otalgia, Reports nasal congestion, Reports sore throat and Denies throat swelling Card Denies chest pain and Denies dyspnea Resp Denies cough and Denies dyspnea GI Denies dysphagia Reports no additional complaints Musc Reports no additional complaints Skin/Breast Reports system reviewed and no additional complaints, except as documented Neuro Reports no additional complaints and Denies dizziness Psych Reports no additional complaints Endo Reports no additional complaints and Denies fatigue Clark/Lymph Reports no additional complaints Aller/Immun Reports no additional complaints and Denies throat swelling Physical Exam Vital Signs: Last Vital Signs Temp 98.3 F 10/16/25 12:33 Pulse 108 H 10/16/25 12:33 BP 124/90 H 10/16/25 12:33 Pulse Ox 98 10/16/25 12:33 Oxygen Delivery Method Room Air 10/16/25 12:33 BMI result Body Mass Index 27.3 HEENT Head: Yes normal to inspection and Yes normocephalic Ears: hearing grossly normal bilaterally, external ears normal, TM's abnormal bilaterally, right TM abnormal (Cerumen impaction) and TM normal on the left (TM bulging with erythema) General nose exam: Normal external nose present Face and sinus: Yes normal facial exam and Yes sinuses nontender Mouth: Normal oral and palatal mucosa present, oropharynx normal and moist mucous membranes Throat: Yes posterior oropharynx normal Eyes General: appearance normal, both eyes and all related structures Neck Lymphatic: no lymphadenopathy noted Resp Effort & Inspection: normal respiratory effort Auscultation: clear to auscultation bilaterally Cardio Rate: regular rate Rhythm: regular rhythm Skin General skin exam: no rashes or lesions noted Psych Appearance: grossly normal Mental Status: mental status grossly normal Insight: Good insight present (Psych) Judgement: Good judgement present (Psych) Assessment & Plan Assessment & Plan (1) Otitis media of left ear: Comment: Patient's examination reveals cerumen impaction in the right ear canal and clinical evidence of an otitis media in the left ear. Patient's symptoms likely originated as an upper respiratory infection however patient will now be discharged home with antibiotic therapy. Strep testing is deferred at this time. Code(s): H66.92 - Otitis media, unspecified, left ear Qualifiers: Otitis media type: other nonsuppurative Chronicity: acute Recurrence: not specified as recurrent Qualified Code(s): H65.192 - Other acute nonsuppurative otitis media, left ear Plan: Amoxicillin 500 mg t.i.d. x7 days, ibuprofen or Tylenol as needed for discomfort. Medications: New amoxicillin 500 mg PO TID 21 caps 0RF Coding Level of Care Code Est Pt Level 3 (62523) Diagnoses Other acute nonsuppurative otitis media of left ear, recurrence not specified H65.192 Otitis media type: other nonsuppurative Chronicity: acute Recurrence: not specified as recurrent Time Spent (min) 20
--- OUTSIDE RECORDS SUMMARY | 2025-10-16 17:53 | XMS_ITS | Clinical Summary ---
Author Organization [employer] Address [address] [place] [address] Care Team Providers Care New Accounts Clerk Name Role Phone Unavailable Primary Care Provider [...] 12/23/2008 Moderna Covid-19 Vaccine 12+ 01/27/2025 Novel [id number], preservative-free 10/11/2009 OPV, Trivalent 06/19/1996,04/10/1996,02/06/1996 Td (adult), [...] 10/26/2025 3:00 PM EST Office Visit [facility] [address] [place] [address] [place] De La Garza, JAYY [address] [place] [address] Health Maintenance Due Date Last Done Comments [...] patient's age to complete this topic Insurance [employer]
== END 2025-10-16 13:10 | disposition home or self-care (01) ==
PROVIDERS: PCP Physician Assistant Medical; Visit Provider Physician Assistant
DX: H65.192 Other acute nonsuppurative otitis media, left ear (principal)